=== PATIENT | male | born 1970 | race Caucasian/White ===

== ENCOUNTER 2025-08-01 07:41 | Outpatient (CLI) | payer BC ==
[2025-08-01] MEDS ORDERED: GASTROGRAFIN 30 ML BOT ONE (11:15)
[2025-08-01] MEDS ORDERED: Iopamidol 370 76% 100 ML VIAL ONE (11:15)
== END 2025-08-01 07:42 | disposition home or self-care (01) ==
LOC: CT 07:41
PROVIDERS: ATTEND Physician Assistant Medical
DX: R19.04 Left lower quadrant abdominal swelling, mass and lump (principal)
CPT/HCPCS: 74177; Q9963; Q9967